=== PATIENT | male | born 1955 | race Caucasian/White ===

== ENCOUNTER 2017-05-02 10:00 | Emergency (ER) | payer OTHER ==
[~2017-05-02] VITALS: Ht 177.8 cm; Wt 61.6 kg
[2017-05-02 10:10] VITALS: BP 133/90; PULSE 104; RESP 18; TEMP 98.8; O2SAT 96
--- NOTE | 2017-05-02 10:53 | PD ---
HPI Chief Complaint: Cold / Flu Symptoms Time Seen by Provider: 10:39 Travel History International Travel<30 days: No Contact w/Intl Traveler<30days: No Traveled to known affect area: No History of Present Illness HPI Patient comes in with concerns over possible pneumonia. Patient states he's been running a fever, coughing, and being congested over the past week. Patient reports he's been taking [id number] DayQuil for symptomatic relief and fever control. Patient reports he occasionally coughs up some white phlegm. Denies any nausea, vomiting, diarrhea, abdominal pain, chest pain, neck pain, or headaches. Patient reports he does feel little short of breath when he has "coughing spells". Denies anything making symptoms worse. Reports temperature at home as high as 103. PFSH Past Medical History Heart Rhythm Problems: No Cardiac Catheterization: No Cardiovascular Problems: No High Cholesterol: No Congestive Heart Failure: No Diabetes: No Pneumonia: Yes (1986) Tetanus Vaccination: < 5 Years Influenza Vaccination: No Past Surgical History Surgical History: No Previous Surgery Coronary Artery Bypass Graft: No Social History Alcohol Use: Yes (4-5 BEERS DAILY) Tobacco Use: Yes (1.5 PPD) Substance Use: No Allergies-Medications (Allergen,Severity, Reaction): Coded Allergies: No Known Allergies (Unverified Adverse Reaction, Unknown, 05/02/17) Reported Meds & Prescriptions Reported Meds & Active Scripts Active Prednisone (21) 10 mg tab Dose Pack (Prednisone) 10 Mg Pack 10 Mg PO DIRECTED Ventolin Hfa 18 GM Inh (Albuterol Sulfate) 90 Mcg/Act Aer 2 Puff INH Q4-6H PRN Review of Systems Except as stated in HPI: all other systems reviewed are Neg Physical Exam Narrative GENERAL: Well-developed, well nourished, in no acute distress, and non-ill appearing. SKIN: Focused skin assessment warm and dry. HEAD: Atraumatic. Normocephalic. EYES: Pupils equal and round. EOMI. No scleral icterus. No injection or drainage. ENT: No nasal bleeding or discharge. Mucous membranes pink and moist. Tympanic membranes pearly mcintyre bilaterally. Posterior pharynx nonerythematous without exudate. Uvula is midline. No tenderness to facial sinuses to palpation. NECK: Trachea midline. No cervical lymphadenopathy. Supple. No nuclear rigidity. CARDIOVASCULAR: Regular rate and rhythm. No murmur appreciated. RESPIRATORY: No accessory muscle use. No respiratory distress. Decreased breath sounds throughout. Breath sounds equal bilaterally. MUSCULOSKELETAL: No obvious deformities. No clubbing. No cyanosis. No edema. Full range of motion. NEUROLOGICAL: Awake and alert. No obvious cranial nerve deficits. Motor grossly within normal limits. Normal speech. PSYCHIATRIC: Appropriate mood and affect; insight and judgment normal. Data Data Last Documented VS Vital Signs Date Time Temp Pulse Resp B/P (MAP) Pulse Ox O2 Delivery O2 Flow Rate FiO2 05/02/17 10:32 Room Air 05/02/17 10:10 98.8 104 18 133/90 (104) 96 Orders Orders Chest, Single Ap (05/02/17 ) Influenzae A/B Antigen (05/02/17 10:44) Albuterol-Ipratropium Neb (Duoneb Neb) (05/02/17 11:30) Prednisone (Deltasone) (05/02/17 11:30) Resp Mdi/Instruction (05/02/17 11:19) Ed Discharge Order (05/02/17 11:49) MDM Medical Decision Making Medical Screen Exam Complete: Yes Emergency Medical Condition: Yes Interpretation(s) Last Impressions Chest X-Ray 05/02/17 0000 Signed Impressions: Service Date/Time: April 10:54 - CONCLUSION: COPD No evidence of acute process. Alexey Yang MD Differential Diagnosis Pneumonia, influenza, bronchitis, COPD exacerbation, viral syndrome, URI Narrative Course The patient looks great and improved well with Nebulizer and steroid medication. The patient is moving air well and in no distress nor significant dyspnea, and oxygen saturation is within normal limits. There is no clinical evidence to suggest pneumonia at this time, however the patient may have a mild bronchitis. Diagnosis, plan of care and management were discussed with the patient who agreed with plan and feels better and ready to go home. The patient was instructed to return if worsen, worsening difficulty breathing or wheezing, persistent fever, chest pain or as needed. Patient in no obvious distress upon re-evaluation. All pertinent laboratory/ Radiology result(s) discussed with patient. Patient was asked if they wanted to speak to my attending, which the patient did not wish to do at this time. Any questions/concerns in reference to patient diagnosis/condition discussed and clarified prior to patient's discharge. Reinforced sheer importance of close follow up with patient's primary physician or primary care clinic. Instructed patient to return to ED immediately, if symptoms return/worsen. Patient showed understanding of above instructions. Further instructions and recommendations were detailed in discharge paperwork. Patient ambulated without difficulty out of ED at discharge. Diagnosis Primary Impression: COPD with acute bronchitis Referrals: [facility] Patient Instructions: Acute Bronchitis (ED), COPD (Chronic Obstructive Pulmonary Disease) (ED), General Instructions Additional Instructions: Follow-up with your primary care physician in 3-5 days for reevaluation. Take all medication as prescribed. Stop smoking. Return to the emergency department if symptoms get worse. Med/Other Pt SpecificInfo: Prescription(s) given Scripts Azithromycin (Zithromax Z-Jesse) 250 Mg Dspk 250 MG PO DIRECTED for Infection, #1 DSPK 0 Refills 500 MG (2 tabs) day 1, then 1 tab days 2-5. Prov: David Velasquez MD 05/02/17 Prednisone (21) 10 mg tab Dose Pack (Prednisone (21) 10 mg tab Dose Pack) 10 Mg Pack 10 MG PO DIRECTED for Inflammation, #1 DSPK 0 Refills Prov: David Velasquez MD 05/02/17 Albuterol 18 GM Inh (Ventolin Hfa 18 GM Inh) 90 Mcg/Act Aer 2 PUFF INH Q4-6H Y for SHORTNESS OF BREATH, #1 INHALER 0 Refills Prov: David Velasquez MD 05/02/17 Disposition: 01 DISCHARGE HOME Condition: Stable Anil Fang May 02, 2017 10:53
--- NOTE | 2017-05-02 11:13 | RADRPT ---
EXAM DATE/TIME: 05/02/2017 10:54 [facility] COMPARISON: CHEST SINGLE AP, June 24, 2015, 10:30. INDICATIONS : Shortness of breath and congestion for one week. MEDICAL HISTORY : Smoker. SURGICAL HISTORY : None. ENCOUNTER: Initial ACUITY: 2 weeks PAIN SCORE: 0/10 LOCATION: Bilateral chest FINDINGS: The lungs are hyperaerated and demonstrate diffuse interstitial prominence. There is no evidence of a cute air space disease or suspicious nodular densities. There are no effusions. Heart and mediastinal structures are stable. CONCLUSION: COPD No evidence of acute process. Alexey Yang MD on May 02, 2017 at 11:10 Board Certified Radiologist. This report was verified electronically.
[2017-05-02] MEDS ORDERED: RESP: ALBUTEROL 2.5 MG/IPRATROPIUM 0.5 MG NEB (SCH) INH ONE (11:30)
[2017-05-02] MEDS ORDERED: predniSONE 20 MG TAB PO ONE (11:30)
[2017-05-02] MEDS ORDERED: PRED10PA PO (11:46)
[2017-05-02] MEDS ORDERED: VENTAER INH (11:46)
[2017-05-02] MEDS ORDERED: ZITHTAB PO (11:46)
== END 2017-05-02 11:57 | disposition home or self-care (01) ==
LOC: PHED 10:00
DX: J44.0 Chronic obstructive pulmonary disease with (acute) lower respiratory infection (principal); J20.9 Acute bronchitis, unspecified; F17.200 Nicotine dependence, unspecified, uncomplicated
CPT/HCPCS: 71010; 87804; 94664; 99284; J7512